=== PATIENT | male | born 1960 | race Caucasian/White ===

== ENCOUNTER 2023-02-27 14:45 | Outpatient (AMB) | payer BC, SELFPAY ==
[2023-02-27 15:06] VITALS: BP 168/93; PULSE 69; BMI 30.4
--- NOTE | 2023-02-27 15:06 | MHC.OFFVIS ---
Intake Vital Signs 02/27/23 15:06 Height 5 ft 8 in Weight 200 lb 2.876 oz BMI 30.4 BP 168/93 H Blood Pressure Location Rt brachial Position Sitting Pulse 69 Intake Visit Reasons: Colonoscopy Screening Intake Note: Patient presents to in office visit today as a new patient for colonoscopy screening. CC: Last colonoscopy 10 years ago per PT at [facility] [place] and it was normal. PT denies having any GI symptoms or concerns today. Allergies No Known Allergies Allergy (Verified 02/27/23 15:08) HPI Colonoscopy Screening HPI Details 62-year-old male here for preprocedural meeting to discuss a screening colonoscopy. He is referred by Donavan Fraire of [facility] primary care. PMX No significant medical history and primary note HTN * SURGICAL HISTORY No significant surgical history on primary note PT denies * ALLERGIES: NKDA * [employer] LABS: NONE RECENT TODAY'S VISIT He had a prior colonoscopy at [facility] [place] and it was negative. This was 10 years ago. No bowel problems except known hemorrhoids and no upper GI problems. NO trouble with sedation on first colonoscopy. Otherwise he is fairly naive to anesthesia and sedation. He denies any cardiac or respiratory problems. No ID problems. There is no known FHX of crc or polyps. PFSH Surgical History H/O colonoscopy Family History Mother Leukemia Social History Household Members Other:: roomate Housing: House Alcohol intake: never Patient Tobacco Use Status: Never used Tobacco Review of Systems Const Denies fatigue, Denies fever(s), Denies night sweats, Denies poor appetite and Denies weight loss ENT Reports Normal hearing present, Denies dental pain, Denies dysphagia, Denies hearing loss, Denies mouth pain, Denies odynophagia, Denies throat swelling, Denies tongue swelling and Reports other (Dentition adequate) Card Reports no additional complaints Resp Reports no additional complaints GI Denies abdominal pain, Denies melena, Denies bloating, Reports hematochezia, Denies constipation, Denies GI cramping, Denies dysphagia, Denies excessive flatus, Denies early satiety, Denies heartburn, Denies diarrhea, Denies nausea, Denies odynophagia, Denies vomiting and Denies hematemesis Skin/Breast Denies pruritus, Denies lesions, Denies rash and Denies jaundice Neuro Reports Normal hearing present and Denies Abnormal speech present Endo Denies fatigue Aller/Immun Denies throat swelling and Denies tongue swelling Physical Exam Vital Signs: Last Vital Signs Pulse 69 02/27/23 15:06 BP 168/93 H 02/27/23 15:06 BMI result Body Mass Index 30.4 Const General: cooperative, no acute distress, well developed and well groomed Nutritional Appearance: well nourished and obese Orientation/consciousness: oriented to person, oriented to place and oriented to time Limitations: No language barrier HEENT Head: Yes normocephalic and Yes atraumatic Eyes General: appearance normal, both eyes and all related structures Pupils: Equal, round and reactive pupils present Neck Neck: Yes normal visual inspection and Yes no lymphadenopathy Thyroid: Thyroid normal Resp Effort & Inspection: normal respiratory effort and able to speak in complete sentences Auscultation: clear to auscultation bilaterally Cardio Rate: regular rate Rhythm: regular rhythm Heart sounds: Normal, physiologic split S2 sound present Peripheral pulses: radial pulses present and posterior tibial pulses present GI Inspection: No distended, No Abdominal panniculus present and Yes obesity Palpation (GI): Soft to palpation, nontender, no guarding, not rigid and No hepatosplenomegaly present Percussion: Yes normal to percussion Auscultation: normal bowel sounds Rectal Exam - Male: Yes deferred Skin General skin exam: no rashes or lesions noted, turgor normal, skin not dry, no jaundice, No spider nevi and no striae Rashes: no rashes Nails: normal Neuro General: oriented to person, oriented to place and oriented to time Cranial nerves: Yes Equal, round and reactive pupils present and Yes Normal hearing present Speech: No Abnormal speech present Extrem General: Yes normal to inspection, No clubbing, No cyanosis and No edema Psych Appearance: grossly normal and well kempt Mental Status: mental status grossly normal Speech and movement: Normal speech and movement present Affect: normal affect Attitude: cooperative Thought process: Normal thought process present and not confabulating Thought content: Normal thought content present Insight: Good insight present (Psych) Judgement: Good judgement present (Psych) Assessment & Plan Assessment & Plan (1) Pre-op examination: Code(s): Z01.818 - Encounter for other preprocedural examination Plan: He had a prior colonoscopy at [facility] [place] and it was negative. This was 10 years ago. No bowel problems except known hemorrhoids and no upper GI problems. NO trouble with sedation on first colonoscopy. Otherwise he is fairly naive to anesthesia and sedation. He denies any cardiac or respiratory problems. No ID problems. There is no known FHX of crc or polyps. Orders: Orders Colonoscopy - GI Use Only Today Z01.818 - Encounter for other preprocedural examination Complete Blood Count Auto Diff Today Z00.00 - Encounter for general adult medical examination without abnormal findings, Z01.818 - Encounter for other preprocedural examination Comprehensive [place]. Panel Fast Today Z00.00 - Encounter for general adult medical examination without abnormal findings, Z01.818 - Encounter for other preprocedural examination Medications: New peg 3350-electrolytes 236-22.74-6.74 -5.86 gram (Golytely) until fecal effluent is clear; do not exceed a total volume of 2,000 mL 240 mL PO Q10M 1 day 4,000 mL 0RF Z12.11 - Encounter for screening for malignant neoplasm of colon Coding Level of Care Code New Pt Level 3 (76091) Diagnoses Pre-op examination Z01.818
== END 2023-02-27 15:41 | disposition home or self-care (01) ==
PROVIDERS: PCP Nurse Practitioner Family; Visit Provider Nurse Practitioner
DX: Z01.818 Encounter for other preprocedural examination (principal); Z12.11 Encounter for screening for malignant neoplasm of colon
CPT/HCPCS: S0285

== ENCOUNTER → 2023-02-27 14:45 | Outpatient (BNVA) | payer BC, SELFPAY | PROVIDERS: PCP Nurse Practitioner Family; Visit Provider Nurse Practitioner ==

== ENCOUNTER 2023-03-16 08:46 | Outpatient (REF) | payer BC, SELFPAY ==
[2023-03-16 11:22] LABS: MANUAL DIFF FLAG NO
[2023-03-16 11:27] LABS: Basophils Absolute Auto 0.1 X10*3/uL (0.0-0.2); Basophils Percent Auto 1.3 % (0-2); Eosinophils Absolute Auto 0.1 X10*3/uL (0.0-0.4); Eosinophils Percent Auto 1.7 % (0-4); Hematocrit 42.1 % (42.0-52.0); Hemoglobin 14.5 g/dl (14.0-18.0); Imm Gran Abs Auto 0.02 X10*3/uL (0.00-0.03); Imm Gran Pct Auto 0.4 % (0.0-0.4); Lymphocytes Absolute Auto 1.4 X10*3/uL (1.2-4.9); Lymphocytes Percent Auto 29.5 % (20-40); Mean Corpuscular HGB Conc 34.4 g/dl (31.0-36.0); Mean Corpuscular Hemoglobin 31.4 pg (27.0-33.0); Mean Corpuscular Volume 91.1 fL (80.0-98.0); Mean Platelet Volume 11.3 fL (9.4-12.4); Monocytes Absolute Auto 0.7 X10*3/uL (0.1-1.2); Monocytes Percent Auto 14.1 % (2-11); Neutrophils Absolute Auto 2.5 x10*3/uL (2.0-8.3); Platelet Count 209 X10*3/uL (160-400); Red Blood Count 4.62 X10*6/uL (4.60-5.80); Red Cell Distribution Width 12.7 % (11.0-16.0); White Blood Count 4.8 X10*3/uL (4.8-10.8)
[2023-03-16 11:30] LABS: Appearance Urine Clear; Color Urine Yellow; Glucose Urine UA Negative (Negative); Leukocyte Esterase Urine Negative (Negative); Nitrite Urine Negative (Negative); PH 5.5 (5.0-9.0); Specific Gravity - Urine 1.025 (1.005-1.025); Urine Blood Negative (Negative); Urine Ketones Trace mg/dL (Negative); Urine Protein Negative (Neg-Trace)
[2023-03-16 12:05] LABS: Alanine Aminotransferase 28 U/L (0-40); Albumin Level 4.6 g/dL (3.5-5.0); Alkaline Phosphatase 50 U/L (39-117); Anion Gap 12 (12-20); Aspartate Amino Transferase 23 U/L (5-37); Bilirubin Total 1.6 mg/dL (0.0-1.0); Blood Urea Nitrogen 17 mg/dL (9-16); Calcium 9.5 mg/dL (8.4-10.2); Carbon Dioxide 25 mmol/L (22-29); Chloride 104 mmol/L (96-108); Cholesterol 182 mg/dL (<200); Estimated Glomerular Filt Rate > 60; Glucose Fasting 119 mg/dL (60-99); HDL Cholesterol 47 mg/dL (>40); LDL Cholesterol Calculated 120 mg/dL (<100); Potassium 4.4 mmol/L (3.3-5.1); Sodium 137 mmol/L (135-145); Triglycerides 78 mg/dL (<150)
[2023-03-16 12:08] LABS: TSH reflex Free T4 1.25 uIU/mL (0.32-4.0)
[2023-03-16 12:10] LABS: Prostate Specific Antigen Scr 1.73 ng/mL (<0.05-4.0)
== END 2023-03-16 08:47 | disposition home or self-care (01) ==
LOC: HO.HMGCLDS 08:46
PROVIDERS: Absent Provider Nurse Practitioner; PCP Nurse Practitioner Family; Visit Provider Nurse Practitioner Family
DX: Z01.818 Encounter for other preprocedural examination (principal); Z12.5 Encounter for screening for malignant neoplasm of prostate; Z13.220 Encounter for screening for lipoid disorders; Z13.29 Encounter for screening for other suspected endocrine disorder
CPT/HCPCS: 36415; 80053; 80061; 81003; 84153; 84443; 85025

== ENCOUNTER 2023-06-05 08:31 | Day surgery (SDC) | payer BC, SELFPAY ==
--- NOTE | 2023-06-04 09:07 | HO.ANESPROP2 ---
HPI - Anesthesia Eval Consult details Narrative: 63yo M for Colonoscopy PMFSH Active Problems Active Problems: All Active Problems (Updated 02/27/23 @ 15:12 by JENNIFER Desai) Pre-op examination (Acute) Screening for colon cancer (Acute) Screening PSA (prostate specific antigen) (Acute) Physical exam (Acute) Family History Family History Mother Leukemia Surgical History Surgical History H/O colonoscopy Social History Social History Household Members Other:: roomate Housing: House Alcohol intake: never Patient Tobacco Use Status: Never used Tobacco Meds Allergies Allergy/AdvReac Type Severity Reaction Status Date / Time No Known Allergies Allergy Verified 02/27/23 15:08 Exam Pertinent Lab Results Pertinent Lab Results: Laboratory Tests 03/16/23 08:54 WBC 4.8 Hgb 14.5 Hct 42.1 Plt Count 209 Sodium 137 Potassium 4.4 Chloride 104 Carbon Dioxide 25 BUN 17 H Creatinine 0.95 Assessment and Plan Assessment Anesthesia Assessment: Chart Reviewed
[2023-06-05 08:42] VITALS: BMI 31.0
[2023-06-05] MEDS: Lactated Ringers 1,000 ML 100 ML IVCONT (08:49)
[2023-06-05 09:08] VITALS: BP 161/86; PULSE 70; RESP 18; TEMP 36.6; O2SAT 96
--- NOTE | 2023-06-05 09:20 | HO.ANESPROP2 ---
FORM[facility]LY [facility], [facility]–1983 Active Problems Active Problems: All Active Problems (Updated 06/05/23 @ 09:13 by Roslyn Escobar, RN) Pre-op examination (Acute) Screening for colon cancer (Acute) Screening PSA (prostate specific antigen) (Acute) Physical exam (Acute) Past Medical History Medical History (Updated 06/05/23 @ 09:13 by Roslyn Escobar, RN) Hx of essential hypertension Family History Family History Mother Leukemia Family history of problems with anesthesia: No Surgical History Surgical History H/O colonoscopy History of Problems with Anesthesia: No Social History Social History Household Members Other:: roomate Housing: House Alcohol intake: never Patient Tobacco Use Status: Former Tobacco user Are you DNR?: No Advance Directives: No Advance Directives Information Provided: Yes Nutrition Risks: No Nutritional Risk Meds Allergies Allergy/AdvReac Type Severity Reaction Status Date / Time No Known Allergies Allergy Verified 06/05/23 09:13 Active Medications: Current Medications Lactated Ringer's (Lr) 1,000 mls @ 100 mls/hr IVCONT .Q10H SHERRIE Last Admin: 06/05/23 08:49 Dose: 100 mls/hr Exam Height,Weight and Vital Signs: Height 5 ft 8 in Weight 92.533 kg Last Vital Signs Temp 97.9 F 06/05/23 09:08 Pulse 70 06/05/23 09:08 Resp 18 06/05/23 09:08 BP 161/86 H 06/05/23 09:08 Pulse Ox 96 06/05/23 09:08 O2 Del Method Room Air 06/05/23 09:08 Airway Mallampati Class: II TM Dist: >3cm Neck ROM: Full Assessment and Plan Assessment Anesthesia Assessment: Anesthesia Plan Discussed and Chart Reviewed Final Anesthetic Review Family History of Problems with Anesthesia: No History of Problems with Anesthesia: No NPO: Yes ASA Class: II Final Preanesthetic Review: No Changes in Pt Med Stat, Meds/Allgs Chart Reviewed, Consent Obtained/Reviewed and Anes Risks/Benef Reviewed Patient Risk: Low Procedure Risk: Low Anesthetic Plan Anesthetic Plan: TIVA Disposition: Standard PACU
--- NOTE | 2023-06-05 09:55 | MHC.SHP ---
Pre-Procedural Eval Section A Date of Service: 06/05/23 The patient is an INPATIENT: No The History & Physical has been completed within 30 days and I have reviewed it.: No Section B Chief Complaint: Colon cancer screen Relevant Family History (Specify if Yes): No Relevant Social History: None Present Medications: see Short Stay Collaborative assessment Medical History: Significant History (Hypertension) History of Previous Operations: Relevant previous surgery/procedure and date(s) (History of colonoscopy) Allergies: Allergies Allergy/AdvReac Type Severity Reaction Status Date / Time No Known Allergies Allergy Verified 06/05/23 09:13 Review of Systems Sugical H&P ROS: Negative: Constitution, Cardiovascular, Respiratory and Gastrointestinal Exam Surgical H&P Exam: Normal: Heart, Normal: Lungs, Normal: Extremities and Normal: Abdomen Plan Diagnosis/Plan: Unchanged I have reviewed the history and physical and performed a pertinent physical examination on my patient. No changes have occurred unless specified. Time Spent With Patient Time: Total time managing care of this patient today ____ minutes.
--- NOTE | 2023-06-05 11:56 | P.OP_ITS ---
Operative Note Operative Note Date of Service: 06/05/23 Narrative: COLONOSCOPY TILL CECUM WITH BIOPSIES Pre-op diagnosis: Colon cancer screening Post-op diagnosis:? Colon polyps, diverticulosis, hemorrhoids Endoscopist:? Carie Brandon MD Anesthesia:?MAC Consent: Indications for the procedure and potential complications of bleeding, perforation, reaction to medications and missed diagnosis were discussed with the patient and informed consent was obtained. Instrument: Olympus CF H 190 L variable stiffness adult colonoscope Monitoring: Vital signs and clinical assessment, intermittent blood pressure monitoring, continuous EKG monitoring, Pulse oximetry and Carbon Dioxide monitoring were done throughout the procedure. Please see anesthesia flowsheet. Colon withdrawl time was 18 minutes. Procedure: The patient was placed in the left lateral decubitis position and pre-procedure medications were administered. After a digital rectal examination of the ano-rectum, the video colonoscope was inserted into the rectum and advanced through the colon to the cecum. The colonoscope was slowly withdrawn in a retrograde panoramic fashion and the colon mucosa was carefully examined including a retroflexed view of the rectum. Findings and interventions are described below. Procedure Difficulty: Without difficulty Findings: Terminal Ileum: Not evaluated Cecum: Moderate scattered diverticulosis throughout the entire colon Ascending Colon: A 2-3 mm sessile polyp in the distal AC - removed with a cold biopsy. Moderate scattered diverticulosis throughout the entire colon Transverse Colon: Moderate scattered diverticulosis throughout the entire colon Descending Colon: Moderate scattered diverticulosis throughout the entire colon Sigmoid Colon: Moderate diverticulosis Rectum: A few 5-8 mm diminutive appearing polyps - one was biopsied. Ano-rectum: Moderate internal hemorrhoids Colon preparation: Good [place] Bowel Preparation Scale Right colon; 3 Transverse colon: 3 Left colon; 3 (0 = Unprepared colon segment with mucosa not seen due to solid stool that cannot be cleared. 1 = Portion of mucosa of the colon segment seen, but other areas of the colon segment not well seen due to staining, residual stool and/or opaque liquid. 2 = Minor amount of residual staining, small fragments of stool and/or opaque liquid, but mucosa of colon segment seen well. 3 = Entire mucosa of colon segment seen well with no residual staining, small fragments of stool or opaque liquid) Impression and Post Procedure Diagnosis: Colonoscopy Findings: One small polyp removed, a diminutive appearing polyp was biopsied Moderate diverticulosis seen in the entire colon Moderate hemorrhoids on retroflexed exam. Plan: I will send a letter with pathology results Repeat Colonoscopy interval based on path results - in 5 years if polyps are adenomatous and 10 years if polyps are hyperplastic. Above findings were reviewed with the patient and colon polyps and diverticulosis handouts were given in the discharge area
[2023-06-05 12:03] VITALS: BP 90/50; PULSE 60; RESP 16; TEMP 36.1; O2SAT 95
[2023-06-05 12:29] VITALS: BP 136/79; PULSE 64; RESP 18; TEMP 36.1; O2SAT 96
== END 2023-06-05 13:04 | disposition home or self-care (01) ==
PROVIDERS: PCP Nurse Practitioner Family; Visit Provider Internal Medicine Gastroenterology
PROC: 0DJD8ZZ Inspection of Lower Intestinal Tract, Via Natural or Artificial Opening Endoscopic (ICD-10-PCS; CPT 45378; principal; 2023-06-05 10:10)
DX: Z12.11 Encounter for screening for malignant neoplasm of colon (principal); H54.7 Unspecified visual loss; D12.2 Benign neoplasm of ascending colon; K62.1 Rectal polyp; K57.30 Diverticulosis of large intestine without perforation or abscess without bleeding; K64.8 Other hemorrhoids; I10 Essential (primary) hypertension; Z79.899 Other long term (current) drug therapy; Z87.891 Personal history of nicotine dependence
CPT/HCPCS: 45380; 88305; J2704

== ENCOUNTER → 2023-06-05 08:31 | Outpatient (BNV) | payer BC, SELFPAY | PROVIDERS: PCP Nurse Practitioner Family; Visit Provider Internal Medicine Gastroenterology | DX: Z12.11 Encounter for screening for malignant neoplasm of colon (principal); D12.2 Benign neoplasm of ascending colon; K57.90 Diverticulosis of intestine, part unspecified, without perforation or abscess without bleeding; K64.8 Other hemorrhoids | CPT/HCPCS: 45380 ==

== ENCOUNTER 2024-07-28 10:19 | Outpatient (AMB) | payer BC, SELFPAY ==
[2024-07-28 10:39] VITALS: BP 158/84; PULSE 76; O2SAT 95; BMI 26.1
--- NOTE | 2024-07-28 10:39 | A.OFFPC_ITS ---
Vital Signs 07/28/24 10:39 07/28/24 11:25 Height 5 ft 8 in Weight 171 lb 8 oz BMI 26.1 BP 158/84 H 140/84 H Blood Pressure Location Lt brachial Lt brachial Position Sitting Sitting Pulse 76 Pulse Source Pulse Oximeter Pulse Oximetry (%) 95 Oxygen Delivery Method Room Air Intake Visit Reasons: ANNUAL PE Intake Note: Pt is here today for his annual physical. Allergies No Known Allergies Allergy (Verified 07/28/24 11:27) Medication List - Last Reconciled 07/28/24 by JAYA Hale- lisinopril 10 mg PO DAILY Tobacco use date assessed: 07/28/24 Dental Screening Dental Screen Date: 07/28/24 Did you have a dental visit in the last 12 months?: Yes Did you have a dental problem in the last 6 months where you did not have access to dental care?: No Was dental information given to patient?: Patient has dentist HPI ANNUAL PE HPI Details History of Present Illness The patient is a 64-year-old male presenting for a physical examination. His medical background includes essential hypertension and vitiligo affecting the bilateral scrotal hair area. He denied any symptoms typically associated with hypertension, such as chest pain, shortness of breath, or visual disturbances. Additionally, he affirmed that his colorectal screenings are up to date, with no bowel irregularities or abdominal symptoms reported currently. He reports a few weeks ago having diarrhea, since has been better. A digital rectal examination indicated a normally-sized prostate with no palpable nodules and a smooth central groove, highlighting no recent developments in prostate health concerns. Regarding vitiligo, no recent changes or complications were noted beyond the existing involvement of the scrotal area. The patient did not experience any exacerbating factors or associated autoimmune conditions linked with his vitiligo. Overall, his chronic conditions are stable without new significant developments or symptoms. Health Maintenance - Colorectal cancer screening: Up to angus e - No discussions regarding vaccinations, lifestyle modifications, or other preventive measures were noted Social History Review of Systems - Cardiovascular: Denies chest pain, maty rtness of breath, dizziness, blurred vision, edema - Gastrointestinal: Denies abdominal kelly n, blood on stool, constipation, diarrhea - Genitourinary: Denies urinary symptoms - Neurological/Psychiatric: Denies suici reji ideation, homicidal ideation Physical Exam General: Cooperative, healthy appearing, comfortable, no acute distress and well developed Orientation: Patient oriented x3 Limitations: No limitations Head: Normal to inspection Ears: Hearing grossly normal bilaterally Nose: Normal external nose present Face and sinus: Normal facial exam Eyes: Appearance normal, both eyes and all related structures Neck: Normal visual inspection and Yes full ROM Respiratory: Normal respiratory effort and able to speak in complete sentences. Clear to auscultation bilaterally Cardiovascular: Regular rate and rhythm. Normal S1 and S2 GI: Normal to inspection. Soft to palpation and nontender Skin: Vitiligo noted to bilateral scrotum zo area Neuro: Patient oriented x3 Extremities: Normal to inspection Results Plan There were no changes warranted for the management of the patient's essential hypertension during this visit, as he has demonstrated effective symptom control and regular monitoring of his condition. No immediate recommendations for further diagnostics or adjustments in medication were necessary. Concerning vitiligo, the absence of progression or patient distress did not necessitate any treatment adjustments, and the current watchful monitoring approach remains appropriate. The patient's colorectal cancer screening being current supports the maintenance of his preventative health measures at this time. Discussion Notes During the appointment, discussions centered around the stability of the patient's essential hypertension and vitiligo. The patient's effective symptom control meant continued management without alterations to therapy was recommended. His up-to-date colorectal screening was acknowledged, promoting his preventative health status. Future visits will assess any necessary changes, especially if symptoms or additional health concerns arise. No new risks or statistical information regarding disease progression was introduced during the consultation. Will have him take his BP at home, contact the office if sustaining 140/90 or above. He will drop off readings from home in the near future. Patient Instructions - Continue current blood pressure manage ment routine. - Report any new or worsening symptoms t o me as soon as they occur. - Maintain scheduled colorectal cancer s creenings. - Monitor for any changes in skin pigmen tation or new lesions and inform me if any developments occur. [facility] Medical History (Updated 07/28/24 @ 11:22 by CLAIRE Hale) Hx of essential hypertension Surgical History H/O colonoscopy Family History Mother Leukemia Social History Household Members Other:: roomate Housing: House Alcohol intake: never Patient Tobacco Use Status: Former Tobacco user e-Cigarette/Vaping Use: Never Used service: No Cognitive needs: No Hearing needs: No Vision needs: No Questionnaire PHQ-9 Over the last 2 weeks, how often have you been bothered by any of the following problems? 1. Little interest or pleasure in doing things: nearly every day 2. Feeling down, depressed, or hopeless: not at all 3. Trouble falling or staying asleep, or sleeping too much: not at all 4. Feeling tired or having little energy: not at all 5. Poor appetite or overeating: more than half the days 6. Feeling bad about yourself - or that you are a failure or have let yourself or your family down: not at all 7. Trouble concentrating on things, such as reading the newspaper or watching television: not at all 8. Moving or speaking so slowly that other people could have noticed. Or the opposite - being so fidgety or restless that you have been moving around a lot more than usual: not at all 9. Thoughts that you would be better off or of hurting yourself in some way: not at all Total score: 5 Depression Screening Interpretation: Negative Depression Screening Done: Yes 13049 - PHQ-9 Billing: Yes Source: Developed by Drs. Angel Holcomb, Yessy Adan, Cole Silva and colleagues, with an educational bassam from [employer]. Thrive Questionnaire Date Thrive assessed: 07/28/24 I am a: Patient What is your living situation today?: I have a steady place to live Within the past 12 months, did the food you bought not last and you didn't have the money to get more?: Never true Within the past 12 months, did you worry whether your food would run out before you got money to buy more?: Never true Do you have trouble paying for medicines?: No Do you have trouble getting transportation to medical appointments?: No Do you have trouble paying your heating and electricity bill?: No Do you have trouble taking care of your child, family member or friend?: No Do you have trouble with day-to-day activities such as bathing, preparing meals, shopping, managing finances, etc.?: No Are you currently unemployed and looking for a job?: No Are you interested in more education?: No Please select the resources that you would like help with: None Currently or been in a relationship where the following occur: No concerns reported THRIVE Score: 0 AUDIT C Alcohol Use Questionnaire (AUDIT-C) 1. How often do you have a drink containing alcohol?: Never 3. How often do you have six or more drinks on one occasion?: Never Total Score: 0 Score Reviewed/Action Taken: Yes MICHELLE-7 AMB Questionnaire MICHELLE-7 Date MICHELLE - 7 assessed: 07/28/24 Feeling nervous, anxious, or on edge: 0 = Not at all Not being able to stop or control worryin = Not at all Worrying too much about different things: 0 = Not at all Trouble relaxin = Not at all Being so restless that it is hard to sit still: 0 = Not at all Becoming easily annoyed or irritable: 0 = Not at all Feeling afraid as if something awful might happen: 0 = Not at all Total MICHELLE-7 score (0-4 normal; 5-9 mild; 10-14 moderate; 15-21 severe): 0 Source: Developed by Drs. Angel Holcomb, Yessy Adan, Cole Silva and colleagues, with an educational bassam from [employer]. MICHELLE-7 Assessment Billing MICHELLE-7 Assessment Tool: MICHELLE-7 Assessment 72584 Physical exam (Primary Care) Vital Signs: Last Vital Signs Pulse 76 07/28/24 10:39 BP 158/84 H 07/28/24 10:39 Pulse Ox 95 07/28/24 10:39 Oxygen Delivery Method Room Air 07/28/24 10:39 BMI result Body Mass Index 26.1 Tobacco/Smoking Status: Tobacco use Status Tobacco use date assessed 07/28/24 07/28/24 10:42 Patient Tobacco Use Status Former Tobacco user 07/28/24 10:42 e-Cigarette/Vaping Use Never Used 07/28/24 10:42 PHQ-9: PHQ-9 Score PHQ-9: Total score 5 07/28/24 11:08 Depression Screening Interpretation: Negative Thrive Assessment: Date of Thrive Assessment Date Thrive assessed 07/28/24 07/28/24 10:42 Currently or been in a relationship where the following occur: No concerns reported Coding Level of Care Code Est Pt Prev Care 40-64y(97628) Diagnoses Physical exam Z00.00 Screening PSA (prostate specific antigen) Z12.5 Hx of essential hypertension Z86.79 Additional Codes MICHELLE-7 Assessment Billing - MICHELLE-7 Assessment Tool: MICHELLE-7 Assessment 02252 ([id number]) PHQ-9 - 93429 - PHQ-9 Billing: Yes ([id number]) Assessment & Plan Assessment & Plan (1) Physical exam: Code(s): Z00.00 - Encounter for general adult medical examination without abnormal findings Category: Medical (2) Screening PSA (prostate specific antigen): Code(s): Z12.5 - Encounter for screening for malignant neoplasm of prostate Category: Medical (3) Hx of essential hypertension: Code(s): Z86.79 - Personal history of other diseases of the circulatory system Category: Medical Plan . Orders: Orders Complete Blood Count Auto Diff Today Z00.00 - Encounter for general adult medical examination without abnormal findings Comprehensive [place]. Panel Fast Today Z00.00 - Encounter for general adult medical examination without abnormal findings UA CC w/rflx Micro + Cult Today Z00.00 - Encounter for general adult medical examination without abnormal findings Lipid Panel Today Z00.00 - Encounter for general adult medical examination without abnormal findings TSH reflex Free T4 Today Z00.00 - Encounter for general adult medical examination without abnormal findings Prostate Specific Antigen Scr Today Z12.5 - Encounter for screening for malignant neoplasm of prostate
[2024-07-28 11:25] VITALS: BP 140/84
== END 2024-07-28 11:31 | disposition home or self-care (01) ==
LOC: HO.HMCC 10:19
PROVIDERS: PCP Nurse Practitioner Family; Visit Provider Nurse Practitioner Family
DX: Z00.00 Encounter for general adult medical examination without abnormal findings (principal); Z12.5 Encounter for screening for malignant neoplasm of prostate; Z86.79 Personal history of other diseases of the circulatory system

== ENCOUNTER → 2024-07-28 10:19 | Outpatient (BNVA) | payer BC, SELFPAY | PROVIDERS: PCP Nurse Practitioner Family; Visit Provider Nurse Practitioner Family | DX: Z00.00 Encounter for general adult medical examination without abnormal findings (principal); Z86.79 Personal history of other diseases of the circulatory system | CPT/HCPCS: 96127 ==